=== PATIENT | male | born 1950 | race Caucasian/White ===

== ENCOUNTER → 2017-06-24 | Outpatient (CLI) | payer MEDICARE, BC, OTHER ==
[~2017-06-24] MED LIST: BENICAR 20MG TA20 MG PO; BENICAR HCT 251 TAB PO; BENICAR40 MG PO; CALCIUM 600600 M1 PO; CALCIUM1 CAP PO; CARVEDILOL25 MG PO; CELEXA40 MG PO; CEPHALEXIN500 M1 PO; COREG 25MG25 MG/TAB PO; CRESTOR; CRESTOR20 MG PO; GLUCOPHAGE1000 MG PO; LIPITOR80 MG PO; LORTAB 5/500 501 TAB PO; LOVAZA1 GM PO; METFORMIN HCL1000 MG PO; NIASPAN500 MG PO; VITAMIN B COMPL1 T16 PO; VITAMIN D2000 I1 PO; VITAMIN D32000 IU PO; ZETIA 10MG TAB10 MG PO; ZYLOPRIM 300MG300 MG PO
== END ==
LOC: COL.RAD 11:38
DX: M51.36 Other intervertebral disc degeneration, lumbar region (principal); I70.0 Atherosclerosis of aorta; M54.41 Lumbago with sciatica, right side

== ENCOUNTER 2017-08-30 12:45 | Outpatient (RCR) | payer MEDICARE, BC, OTHER | END 2017-09-03 08:56 | LOC: WSPT 12:45 | DX: M54.17 Radiculopathy, lumbosacral region (principal) | CPT/HCPCS: G8978-GP; G8979-GP; G8980-GP ==

== ENCOUNTER → 2018-11-26 | Outpatient (CLI) | payer MEDICARE, OTHER | LOC: COL.RAD 09:10 | DX: M18.9 Osteoarthritis of first carpometacarpal joint, unspecified (principal) | CPT/HCPCS: J3301; Q9967 ==

== ENCOUNTER → 2020-03-04 | Outpatient (CLI) | payer MEDICARE, OTHER | LOC: COL.RAD 11:49 | DX: E04.2 Nontoxic multinodular goiter (principal) ==

== ENCOUNTER → 2020-07-15 | Outpatient (CLI) | payer MEDICARE, OTHER | LOC: COL.RAD 07-06 08:00 | DX: M18.9 Osteoarthritis of first carpometacarpal joint, unspecified (principal) | CPT/HCPCS: J3301; Q9967 ==

== ENCOUNTER → 2021-03-22 | Outpatient (CLI) | payer MEDICARE, OTHER | LOC: COL.RAD 09:17 | DX: M18.9 Osteoarthritis of first carpometacarpal joint, unspecified (principal) | CPT/HCPCS: J3301; Q9967 ==

== ENCOUNTER → 2021-08-01 | Outpatient (CLI) | payer MEDICARE, OTHER | LOC: COL.RAD 13:16 | DX: M18.12 Unilateral primary osteoarthritis of first carpometacarpal joint, left hand (principal) | CPT/HCPCS: J3301; Q9967 ==

== ENCOUNTER → 2021-10-02 | Outpatient (CLI) | payer MEDICARE, OTHER ==
[~2021-10-02] MED LIST changes: +COREG 6.256.25 MG/TA PO; +GLUCOPHAGE XR500 M1 PO; +MASON NATURAL2000 IU PO; +NEXLIZET 180-11 EACH PO; -VITAMIN D2000 I1 PO
== END ==
LOC: COL.RAD 11:23
DX: E04.2 Nontoxic multinodular goiter (principal)

== ENCOUNTER → 2021-10-09 | Outpatient (CLI) | payer MEDICARE, OTHER ==
--- NOTE | 2021-10-04 08:19 | NUR ---
unable to reach pt prior to procedure. Message left on answering machine at the following number [phone]
[~2021-10-09] VITALS: Ht 182.9 cm; Wt 85.2 kg
[2021-10-09 07:10] VITALS: BP 138/81; PULSE 61; TEMP 97.7
[2021-10-09 07:45] VITALS: BP 136/82; PULSE 59
== END ==
LOC: COL.RAD 06:55
DX: E04.2 Nontoxic multinodular goiter (principal)

== ENCOUNTER 2021-10-25 11:07 | Day surgery (SDC) | payer MEDICARE, OTHER ==
[~2021-10-25] VITALS: Ht 182.9 cm; Wt 85.2 kg
[2021-10-25] VITALS (9 sets, daily range): BP systolic 119–141; BP diastolic 58–81; PULSE 59–76; TEMP 97.4–98.3
[2021-10-25 12:50] LABS: CREATININE, serum 1.43 mg/dL (0.72-1.25); POTASSIUM 4.6 mmol/L (3.5-4.5)
--- NOTE | 2021-10-25 15:40 | NUR ---
1540-Patient A&O x4 from PACU via bed. Assessment complete. VSS. Oriented to room and plan of care. at bedside. Rates pain 4/10, [place] given see EMAR> 1700-Patient easily up to bedside recliner, steady gait. Denies pain at this time. Tolerates meal without nausea.
--- NOTE | 2021-10-25 19:40 | NUR ---
O2 SATS 95% ON 1L. OXYGEN REMOVED AND PT O2 SATS REMAIN 94% 0015: OXYGEN SATS 94%
[2021-10-25 21:23] LABS: ALBUMIN 4.1 gm/dL (3.4-4.8); CALCIUM 9.7 mg/dL (8.4-10.2)
[2021-10-26 00:15] VITALS: BP 116/74; PULSE 72; TEMP 97.9
[2021-10-26 04:00] VITALS: BP 131/84; PULSE 72; TEMP 97.4
--- NOTE | 2021-10-26 06:30 | NUR ---
0630-Patient up and in bedside recliner fully dressed and awaiting breakfast. Denies pain.
[2021-10-26 07:21] VITALS: BP 133/72; PULSE 66; TEMP 97.5
--- NOTE | 2021-10-26 08:30 | NUR ---
0830-Patient seen by Dr. Beck. Reviewed care of incision and signs and symptoms to report. Order recieved for dishcarge. 09-Reviewed discharge instructions. 09-Patient escorted out to car with spouse.
[2021-10-26] MEDS ORDERED: CALCIUM 600 MG1 EAC1 PO (08:35)
--- NOTE | 2021-10-26 10:10 | NUR ---
Initial visit; Patient and his thanked [employer] for offering God's blessings. Patient doing well and has had a good experience at [facility].
== END 2021-10-26 09:05 | disposition home or self-care (01) ==
LOC: SDCO 11:07 → OB 15:40 → SDCO 10-26 09:05
PROVIDERS: Surgery
DX: E04.2 Nontoxic multinodular goiter (principal); G71.02 Facioscapulohumeral muscular dystrophy; E78.5 Hyperlipidemia, unspecified; E55.9 Vitamin D deficiency, unspecified; I12.9 Hypertensive chronic kidney disease with stage 1 through stage 4 chronic kidney disease, or unspecified chronic kidney disease; N18.30 Chronic kidney disease, stage 3 unspecified; E11.42 Type 2 diabetes mellitus with diabetic polyneuropathy; M54.9 Dorsalgia, unspecified; E11.22 Type 2 diabetes mellitus with diabetic chronic kidney disease; F32.9 Major depressive disorder, single episode, unspecified; Z79.84 Long term (current) use of oral hypoglycemic drugs; Z79.899 Other long term (current) drug therapy
CPT/HCPCS: OP; J0690; J1100; J1170; J2405; J2704; J3010; J7120

== ENCOUNTER → 2021-12-06 | Outpatient (CLI) | payer MEDICARE, OTHER ==
[~2021-12-06] MED LIST changes: +CALCIUM 600 MG1 EAC1 PO
== END ==
LOC: COL.RAD 10:56
DX: K21.00 Gastro-esophageal reflux disease with esophagitis, without bleeding (principal)

== ENCOUNTER → 2023-02-01 | Outpatient (CLI) | payer MEDICARE, OTHER | LOC: COL.RAD 13:02 | DX: M25.552 Pain in left hip (principal) | CPT/HCPCS: J3301; Q9967 ==